=== PATIENT | female | born 2005 | race Two or more races ===

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

== ENCOUNTER 2025-01-13 08:38 | Emergency (ER) | payer OTHER, SELFPAY ==
--- NOTE | ~2025-01-13 | XR_ITS ---
EXAMINATION: XR SHOULDER 2 OR MORE VIEWS LEFT HISTORY: trauma COMPARISON: There are no prior studies available for comparison. FINDINGS: Three views of the left shoulder are submitted. Osseous mineralization is normal. There is no fracture or dislocation. The joint spaces are preserved. The soft tissues are unremarkable. XR/XR shoulder LT min 2V IMPRESSION: Unremarkable examination of the left shoulder. Electronically signed by: Khanh Price MD 01/13/2025 11:02 AM EDT
[2025-01-13 08:45] VITALS: BP 119/80; PULSE 96; RESP 18; TEMP 35.8; O2SAT 98; BMI 393.5
--- NOTE | 2025-01-13 09:29 | ED_ITS ---
HPI - Extremity Problem General Chief complaint: Extremity Injury, Upper Stated complaint: l shoulder inj Time Seen by Provider: 01/13/25 09:28 Source: patient Mode of arrival: ambulatory Limitations: no limitations History of Present Illness HPI Narrative: This is a 19 years old female presented to the emergency department complaining of left shoulder pain she states yesterday at basketball practice she got hit with a ball in the left shoulder Complaint: extremity pain Onset (ago): day(s) (1) Pain Consistency: constant Location: left and other (Shoulder) Quality: burning Radiation: none Relieving factors: nothing Exacerbating factors: range of motion Related Data Previous Rx's ?Medication ?Instructions ?Recorded hydrocortisone 1 % topical cream 1 appl topical BID PRN allergic 04/28/24 (Anti-Itch (hydrocortisone)) reaction #28.35 grams prednisone 20 mg tablet 20 mg PO DAILY 5 days #5 tabs 04/28/24 ibuprofen 800 mg tablet 800 mg PO Q8H PRN pain #20 tabs 01/13/25 Allergies Allergy/AdvReac Type Severity Reaction Status Date / Time No Known Allergies Allergy Verified 01/13/25 08:48 Review of Systems Constitutional: Constitutional: Reports no additional constitutional complaints Cardiovascular: Cardiovascular: Reports no additional cardiovascular complaints Gastrointestinal: Gastrointestinal: Reports no additional gastrointestinal complaints Musculoskeletal: Musculoskeletal: Reports as per [facility] Past Medical History Attestation statement: The following information was validated with the patient. Social History Social History Smoked in Last 30 Days: No Use of substances other than those prescribed or required for medical reasons: No Advance Directives: No Advance Directives Information Provided: Yes Patient : No Physical Exam Vital Signs: Vital Signs: Last Vital Signs Temp 97.7 F 01/13/25 09:38 Pulse 74 01/13/25 09:38 Resp 14 01/13/25 09:38 BP 120/72 01/13/25 09:38 Pulse Ox 99 01/13/25 09:38 O2 Del Method Room Air 01/13/25 09:38 BMI result Body Mass Index 393.5 No acute distress comfortable in the stretcher Const: General: cooperative Nutritional Appearance: well nourished Orientation/consciousness: patient oriented x3 HEENT: Head: Yes normal to inspection Face and sinus: Yes normal facial exam Eyes: General: appearance normal, both eyes and all related structures Neck: Neck: Yes normal visual inspection and Yes full ROM Chest: Chest palpation & inspection: normal inspection of the chest Resp: Effort & Inspection: normal respiratory effort Auscultation: clear to auscultation bilaterally Cardio: Jugular venous distension: no JVD Rate: regular rate Rhythm: regular rhythm GI: Inspection: Yes normal to inspection Palpation (GI): Soft to palpation, not firm and nontender Auscultation: normal bowel sounds Skin: General skin exam: no rashes or lesions noted and elasticity normal Neuro: General: patient oriented x3 Extrem: Other: Tenderness in the left shoulder decreased range of motion General: Yes normal to inspection Right upper extremity: normal to inspection Course Reevaluation(s) Reevaluation #1: X-ray negative no fracture no dislocation okay to discharge Time: 11:25 Medications Administered Discontinued Medications Generic Name Dose Route Start Last Admin Trade Name Freq PRN Reason Stop Dose Admin Ibuprofen 800 mg 01/13/25 10:41 01/13/25 11:08 Ibuprofen 800 Mg Tablet PO 01/13/25 10:42 800 mg ONCE ONE Administration Medical Decision Making Medical Decision Making [facility] Narrative: Patient is here complaining of left shoulder pain after trauma we will obtain imaging Differential Diagnosis Differential Diagnoses: The differential diagnosis associated with the presentation includes Shoulder fracture/shoulder dislocation/sprain Admission/Observation Consideration of admission/observation: Escalation of care including admission/observation considered Lab Data [facility] Lab Attestation statement: I reviewed the patient's lab results. Independent Interpretation I performed an independent interpretation of an: EKG (Normal sinus rhythm no ST- T changes rate 77) and Plain X-Ray Interpretation: no fx Radiology Impression Discussion of test interpretation with radiology: I have reviewed the radiologist's reading. Radiologist Impression: no fx Discharge Plan Discharge Clinical Impression: Contusion of left shoulder Qualifiers: Encounter type: initial encounter Qualified Code(s): S40.012A - Contusion of left shoulder, initial encounter Patient Disposition: Home, Self-Care Instructions: Contusion in Adults (ED) Prescriptions: New ibuprofen 800 mg tablet 800 mg PO Q8H PRN (Reason: pain) Qty: 20 0RF No Action hydrocortisone [Anti-Itch (HC)] 1 % cream 1 appl topical BID PRN (Reason: allergic reaction) Qty: 28.35 0RF prednisone 20 mg tablet 20 mg PO DAILY 5 Days Qty: 5 0RF Print Language: [place]
[2025-01-13 09:38] VITALS: BP 120/72; PULSE 74; RESP 14; TEMP 36.5; O2SAT 99
--- NOTE | 2025-01-13 09:42 | PC.NURSE ---
Patient presents to ED from home c/o left shoulder pain, rated 9/10. Patient reports being hit in the shoulder with a basketball. Pain on movement, denies numbess. +CMS. Hot pack provided for relief, effectiveness pending. VSS and up to date. Plan of care on going.
--- NOTE | 2025-01-13 10:41 | ECG_ITS ---
Test Reason : CHEST PAIN Blood Pressure : */* mmHG Vent. Rate : 88 BPM Atrial Rate : 88 BPM P-R Int : 152 ms QRS Dur : 78 ms QT Int : 358 ms P-R-T Axes : 21 -1 -7 degrees QTcB Int : 433 ms Normal sinus rhythm Nonspecific T wave abnormality Abnormal ECG No previous ECGs available Referred By: Harshil Harvey Electronically Signed By: MAGNUS CASTILLO MD
[2025-01-13] MEDS: Ibuprofen 800 MG TABLET PO (11:08)
--- NOTE | 2025-01-13 11:10 | PC.NURSE ---
Ibuprofen administered for pain, effectiveness pending
[2025-01-13 11:34] VITALS: BP 124/66; PULSE 71; RESP 16; TEMP 36.5; O2SAT 99
== END 2025-01-13 11:48 | disposition home or self-care (01) ==
PROVIDERS: Emergency Provider Emergency Medicine
DX: S40.012A Contusion of left shoulder, initial encounter (principal); W21.05XA Struck by basketball, initial encounter; Y93.67 Activity, basketball; Y92.9 Unspecified place or not applicable; Y99.9 Unspecified external cause status; M25.512 Pain in left shoulder
CPT/HCPCS: 73030; 93005; 99283; 99285

== ENCOUNTER → 2025-01-13 10:40 | Outpatient (BNV) | payer OTHER, SELFPAY | PROVIDERS: Emergency Provider Emergency Medicine; Visit Provider Radiology Diagnostic Radiology | DX: S49.92XA Unspecified injury of left shoulder and upper arm, initial encounter (principal) | CPT/HCPCS: 73030 ==

== ENCOUNTER → 2025-01-13 10:41 | Outpatient (BNV) | payer OTHER, SELFPAY | PROVIDERS: Emergency Provider Emergency Medicine; Visit Provider Internal Medicine Cardiovascular Disease | DX: R94.31 Abnormal electrocardiogram [ECG] [EKG] (principal); R07.9 Chest pain, unspecified | CPT/HCPCS: 93010 ==